=== PATIENT | male | born 1975 | race Caucasian/White ===

== ENCOUNTER 2017-10-29 16:18 | Emergency (ER) | payer BC ==
[2017-10-29 16:36] VITALS: TEMP 97.6
[2017-10-29] MEDS ORDERED: PROMETHAZINE HCL INJ 25 MG/ML VIAL IM ONE (16:55)
[2017-10-29] MEDS ORDERED: KETOROLAC TROMETHAMINE INJ 60 MG/2 ML VIAL IM ONE (16:55)
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
[2017-10-29] MEDS ORDERED: SODIUM CHLORIDE 0.9% 500ML 500 ML IVS PRN (18:33)
[2017-10-29 18:38] VITALS: BP 140/82; O2SAT 94
== END 2017-10-29 18:39 | disposition home or self-care (01) ==
LOC: ER 16:18
DX: R51 Headache (principal); Z86.73 Personal history of transient ischemic attack (TIA), and cerebral infarction without residual deficits; Z88.0 Allergy status to penicillin; Z95.0 Presence of cardiac pacemaker
CPT/HCPCS: J1885; J2550